=== PATIENT | male | born 1980 ===

== ENCOUNTER 2021-12-28 07:22 | Day surgery (SDC) | payer OTHER ==
[2021-12-28] MEDS ORDERED: PERCOCET 5-3251 EACH PO (14:29)
== END 2021-12-28 17:10 | disposition home or self-care (01) ==
LOC: CIR.AMB 07:22
PROVIDERS: ATTEND Surgery
DX: D34 Benign neoplasm of thyroid gland (principal); Z20.822 Contact with and (suspected) exposure to COVID-19